=== PATIENT | female | born 1960 | race Caucasian/White ===

== ENCOUNTER 2025-04-07 10:24 | Day surgery (SDC) | payer MEDICARE, SELFPAY ==
[2025-04-07] VITALS (18 sets, daily range): BP systolic 126–145; BP diastolic 61–79; PULSE 88–116; RESP 16–20; TEMP 36.4–37.4; O2SAT 87–100; BMI 31.0
--- OUTSIDE RECORDS SUMMARY | 2025-04-07 10:27 | XMS_ITS | Clinical Summary ---
Author Organization [facility] Address [address] [place] [id number] Care Team Providers Care Creative Services Writer Name Role Phone Nikki Navarroe Primary Care Provider Allergies Active Allergy Reactions Criticality Noted Date Comments Amoxicillin Rash 12/21/2006 Medications CALCIUM CARBONATE/VITAMI N D3 (CALCIUM + D ORAL) Take by mouth once daily. Take 1 tablet by mouth once daily. 1 Active Ventolin HFA 90 mcg/actuation inhalerIndicatio ns:Cough INHALE 1-2 PUFFS BY MOUTH EVERY 4 HOURS IF NEEDED. 1 Each 3 1 Active NITROGLYCERIN 0.2 % IN PETROLATUM OINTMENT, AHC MIXTURE,Indicati ons:Dry skin Use for moisturizing 4 times daily. 106 g 5 3 Active amLODIPine 5 mg tabletIndication s:Essential hypertension Take 1 Tablet (5 mg) by mouth once daily. 100 Tablet 3 5 Active aspirin 81 mg enteric coated tabletIndication s:Dyslipidemia Take 1 Tablet (81 mg) by mouth once daily with a meal. 100 Tablet 3 5 Active atorvastatin 40 mg tabletIndication s:Dyslipidemia Take 1 Tablet (40 mg) by mouth at bedtime. 100 Tablet 3 5 Active lisinopriL 40 mg tabletIndication s:Essential hypertension Take 1 Tablet (40 mg) by mouth once daily. 100 Tablet 3 5 Active hydrocortisone 2.5 % rectal creamIndications :Hemorrhoids, external Apply topically to affected area(s) three times daily. To inflamed hemorrhoid up to 2 weeks. 30 g 3 5 Active metFORMIN 500 mg Extended-Release tabletIndication s:Prediabetes Take 1 Tablet (500 mg) by mouth once daily with evening meal. 100 Tablet 3 5 Active Active Problems Problem Noted Date Diagnosed Date Former smoker 11/22/2023 Prediabetes 11/22/2023 Dyslipidemia 05/14/2017 Overview (05/14/2017): ASCVD 10 year risk 11.9%. Start Lipitor. Hyperplastic colon polyp 05/16/2011 Overview (11/30/2021): Colonoscopy 04/2011 polyps repeat in 10 years Colonoscopy 11/2021 hyperplastic polyp, repeat in 10 years Impaired fasting glucose 04/22/2008 Essential hypertension 03/12/2008 TREMOR, ESSENTIAL 11/04/2004 Resolved Problems Problem Noted Date Diagnosed Date Resolved Date Primary hyperparathyroidism 06/07/2010 05/06/2016 Serum calcium elevated 05/28/201005/03 Closed fracture of unspecifi ed part of humerus 03/12/2008 05/06/2016 Disturbance of skin sensation 05/21/2007 05/06/2016 Tobacco use disorder 05/21/2007 024 HTN (hypertension) 8 Overview (09/08/2009): Updated by system to replace inactive record Immunizations Immunization Administration Dates Next Due COVID-19 VACCINE SPIKEVAX (M ODERNA 50MCG/0.5ML) 12YO+ PFS 11/13/2024 INFLUENZA, IIV3 PF (AGE >= 6 MO) 04/22/2009 Influenza Virus, Unspecified 03/26/2017 Influenza, CCIIV3 (Age >=6 M O) (Egg Free) 04/10/2024 Influenza, IIV3 (Age >=3 years) 03/26/2013,04/27 Influenza, IIV4 03/17/2020,04/04/2018,05/06/2016 Influenza, IIV4 (=>6mos) MDV 03/16/2021, 03/17/2020,04/30/2019,03/26,04/04/2017 Influenza,CCIIV4 PRESERV FREE 05/04/2023 Pneumococcal Conj 20-valent (Prevnar 20) 11/22/2023 Pneumococcal Poly,23-Valent (Pneumovax) 04/27/2012 RSV, Recombinant ADJ Reconst ituted (Arexvy 120MCG/0.5mL) 05/04/2023 Td (Age >=7 Years) 06/02/2004 Tdap 11/22/2023,04/27/2012 Zoster (Shingrix-RZV, recombinant) 08/14/2019, Family History Medical History Relation Name Comments Cancer Father [place] Diabetes Father No Known Problems Mother Diabetes Paternal Grandmother Other Son essential tremo r Cancer-breast No Family History Cancer-ovarian No Family History Relation Name Status Comments Father Mother Paternal Grandmother Son Social History Tobacco Use Types Packs/Day Years Used Date Smoking Tobacco: Former Cigarettes 1 38.7 1 979 - 03/2022 Smokeless Tobacco: Never Tobacco Cessation:Counseling Given: Not Answered Comments:pt declines information- about 3/4 of a pack Alcohol Use Standard Drinks/Week Comments Yes 0 (1 standard drink = 0.6 oz pur e alcohol) rare PHQ-2 Answer Date Recorded PHQ-2 TOTAL SCORE 0 11/13/2024 Social Connections Answer Date Recorded Do you often feel lonely or isolated from those around you? 0 11/13/2024 Financial Resource Strain Answer Date R ecorded Difficulty of Paying Living Expenses 3 11/22/2023 Difficulty of Paying Living Expenses Not on file 11/22/2023 Food Insecurity Answer Date Recorded Do you worry your food will run out before you are able to buy more? 1 11/13/2024 Transportation Needs Answer Date Record ed Does lack of transportation keep you from medica l appointments? 1 11/13/2024 Does lack of transportation keep you from work, meetings or getting things that you need? 1 11/13/2024 Housing Stability Answer Date Recorded What is your housing situation today? 1 11/13/2024 Utilities Answer Date Recorded Do you have trouble paying f or utilities (for example, heat, electricity, water, phone)? 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 Not on file Not on file Not on file Obstetrics History Para Term AB IAB SAB Ectopic Multiple Livin g Live Births 3 3 3 0 0 0 0 0 6 3 Date Outcome GA Total Labor Labor/2nd/3rd Weight Sex Type Anes PTL Solange A1 A5 Name Clin 05/19 Term M Vag Living [facility] 04/02 Term M Vag Living [facility] 11/04 Term M Vag Living Te[facility] Last Filed Vital Signs Vital Sign Reading Time Taken Comments Blood Pressure 126/72 11/13/2024 9:41 AM CDT Pulse 93 11/13/2024 9:41 AM CDT Temperature 36.6 C (97.9 F) 09/13/2022 11:03 AM CDT Respiratory Rate 14 11/13/2024 9:41 AM CDT Oxygen Saturation 96% 11/13/2024 9:41 AM CDT Inhaled Oxygen Concentration - - Weight 86 kg (189 lb 11.2 oz) 11/13/2024 9:41 AM CDT Height 168 cm (5' 6.14) 11/13/2024 9:41 AM CDT Body Mass Index 30.49 11/13/2024 9:41 AM CDT Plan of Treatment Health Maintenance Due Date Last Done Comments HIV for age 15-65 [address] (for lung CA) age 50-80 2009 DEXA/DXA scan for age 65+ 2024 06/10/2010, 09/2009 Influenza Vaccine (#1) 2025 , 05/04/2023, 03/16/2021, Additional history exists Mammogram for age 45-75 11/08/2025 11/09/19 25, 11/03/2023, 09/20/2022, Additional history exists BMI (ht and wt on same day) for age 18+ 11/13/2025 11/13/2024, 11/22/2023, 10/03/2022, Additional history exists Depression screening for age 12+ 11/13/2025 11/13/2024, 11/22/2023, 10/03/2022, Additional history exists Medicare Wellness for age 65+ 11/14/2025 11/13/2024 Pap test for age 21-65 11/14/2027 , 11/13/2024, 09/06/2019, Additional history exists Lipids for age 45-75 11/13/2029 11/13/2024, 11/22/2023, 10/03/2022, Additional history exists Colonoscopy through age 75 11/27/203111/26, 11/26/2021, 11/26/2021, Additional history exists Tetanus booster 11/21/2033 11/22/2023, 07/2011, 06/02/2004 Hepatitis C screening for age 18-79 Completed 05/06/2016 Zoster (shingles) series for age 50+ Completed 08/14/2019, 04/30/2019 RSV vaccine for adults or Completed 05/04/2023 Pneumococcal series for age 50+ Completed 11/22/2023, 04/27/2012 COVID-19 vaccine series Completed 11/14/19, 04/10/2024, 05/04/2023, Additional history exists Hepatitis B series for 19+ Aged Out N o longer eligible based on patient's age to complete this topic Goals Goal Patient Goal Type Associated Problems Recent Progress Patient-Stated? Author BLOOD PRESSURE - MAINTAINS BP less than 140/90 Blood Pressure No Vicky Mays MD Procedures Procedure Name Priority Date/Time Associated Diagnosis Comments LIPID PANEL W REFLEX MEASURED LDL Routine 11/13/2024 10:23 AM CDT Dyslipidemia HPV HIGH RISK Routine 11/13/2024 10:00 AM CDT Screening for cervical cancer XR MAMMO IBAN BILAT SCREEN Routine 11/08/2024 1:10 PM CDT Visit for screening mammogram COLONOSCOPY SCREENING Routine 11/26/2021 8:00 AM CDT Screening for colon cancer ANTI HCV Routine 05/06/2016 9:01 AM ORTHOTICS PROSTHETICS TECHNICIAN Need for hepatitis C screening test XR DXA BONE DENSITY 2 SITES AXIAL Routine 06/10/2010 9:03 AM ORTHOTICS PROSTHETICS TECHNICIAN Primary hyperparathyroidism (HC) from Last 3 Months or Most Recently Relevant to Health Maintenance Results * LIPID PANEL W REFLEX MEASURED LDL (11/13/2024 10:23 AM CDT) CHOLESTEROL, TOTAL 167 <200 mg/dL [facility] HDL CHOLESTEROL 52 > OR = 50 mg/dL [facility] TRIGLYCERIDES 149 <150 mg/dL [facility] LDL-CHOLESTEROL 90 mg/dL (calc) [facility] Comment: Reference range: <100 Desirable range <100 mg/dL for primary prevention; <70 mg/dL for patients with CHD or diabetic patients with > or = 2 CHD risk factors. LDL-C is now calculated using the Kellen calculation, which is a validated novel method providing better accuracy than the Friedewald equation in the estimation of LDL-C. Joey PLUMMER et al. GENEVIEVE. 2013;310(19): 1520-2216 (http://education.[employer]/faq/ZUR473) CHOL/HDLC RATIO 3.2 <5.0 (calc) [facility] NON HDL CHOLESTEROL 115 <130 mg/dL (calc) [facility] Comment: For patients with diabetes plus 1 major ASCVD risk factor, treating to a non-HDL-C goal of <100 mg/dL (LDL-C of <70 mg/dL) is considered a therapeutic option. Blood BLOOD SPECIMEN / Unknown 11/13/2024 10:23 AM CDT 11/13/2024 10:24 AM CDT us Nikki Navarro DO CHEMISTRY Final Resul t [facility] [address] [place] [address], [email or web address] [address] [place] [address] * HPV HIGH RISK (11/13/2024 10:00 AM CDT) TYPE 16 Negative Negative 11/16/2024 7:05 AM CDT [facility] TYPE 18 Negative Negative 11/16/2024 7:05 AM CDT [facility] OTHER HIGH RISK TYPES Negative Negative 11/16/2024 7:05 AM CDT [facility] Other (Cervical) Non-Blood / Unknown 11/13/2024 10:00 AM CDT 11/14/2024 2:07 PM CDT Narrative [facility] - 11/16/2024 7:05 AM CDT HPV types 16, 18, 31, 33, 35, 39, 45, 51, 52, 56, 58, 59, 66 and 68 DNA were undetectable or below the pre-set threshold. Methodology: [facility] 4800 HPV Test us Nikki Navarro DO MICROBIOLOGY Final Resul t [facility] [address] [place] [address], [place] * XR MAMMO IBAN BILAT SCREEN (11/08/2024 1:10 PM CDT) Anatomical Region Laterality Modality BREASTS, Breast Left, Breast Right Bilateral Mammography Impressions 11/08/2024 3:24 PM CDT There is no radiographic evidence for malignancy. Recommend annual mammograms. MAMMOGRAM ASSESSMENT: ACR 1 Negative PATIENTS: You will also receive a letter with your examination results in an easy to read format. If you have questions about your results, please contact your referring provider. Narrative 11/08/2024 3:24 PM CDT For Patients: As a result of the 21st Century Cures Act, medical imaging exams and procedure reports are released immediately into your electronic medical record. You may view this report before your referring provider. If you have questions, please contact your health care provider. XR MAMMO IBAN BILAT SCREEN [[id number]] CLINICAL HISTORY: This is an asymptomatic 64 y.o. patient. INDICATION FOR EXAM: Mammogram Screening. TECHNIQUE: CC and MLO views were obtained. This study was evaluated with the assistance of Computer-Aided Detection. Breast Tomosynthesis was used in interpretation. COMPARISON FILM: Yes 11/03/23 [facility] 09/20/22 [facility] FINDINGS: The breasts are heterogeneously dense, which may obscure small masses. There are no dominant masses, suspicious micro calcifications or areas of architectural distortion. us Nikki Navarro DO MAMMO Final Resul t * COLONOSCOPY (11/26/2021 7:57 AM CDT) 11/26/2021 7:57 AM CDT Narrative Transcriptions Joey Granados MD - 11/26/2021 9:16 AM CDT Patient Name: Merna Dickinson Procedure Date: 11/26/2021 Gender: Female Date of : 1960 Admit Type: Outpatient Procedure: Colonoscopy Proceduralist: Joey Granados MD , Faviola Levi (Nurse) Referring MD: Nikki Navarro Indications/Pre-Op Diagnosis: Screening for colorectal malignant neoplasm, Last colonoscopy: April 2011 Medications: Fentanyl 100 micrograms IV, Midazolam 4 mgIV, The level of sedation administered wasmoderate Procedure Description: The patient had risks, benefits and alternatives explained to andgave informed consent. The patient had a stable cardiopulmonary status and judged an adequate candidate for conscious sedation. The colonoscope was passed through the anus and advanced to thececum, identified by appendiceal orifice and ileocecal valve. Thecolonoscopy was performed without difficulty. The patient tolerated the procedure well. The quality of the bowel preparation was good. The ileocecal valve, appendiceal orifice, and rectum were photographed. Complications: No immediate complications. Estimated Blood Loss & Specimen: Estimated blood loss: none. Specimen collected - Yes and sent to Laboratory Findings: The perianal and digital rectal examinations were normal. A 3 mm polyp was found in the distal rectum. The polyp was sessile.The polyp was removed with a cold biopsy forceps. Resection and retrieval were complete. The exam was otherwise without abnormality on direct and retroflexion views. Impressions/Post-Op Diagnosis: - One 3 mm polyp in the distal rectum, removed with a cold biopsy forceps. Resected and retrieved. - The examination was otherwise normal on direct and retroflexionviews. Recommendation: - Patient has a contact number available for emergencies. The signsand symptoms of potential delayed complications were discussed with the patient. Return to normal activities tomorrow. Written discharge instructions were provided to the patient. - Resume previous diet. - Continue present medications. - Await pathology results. - Repeat colonoscopy is recommended. The colonoscopy date will be determined after pathology results from today's exam become available for review. Moderate Sedation: Moderate (conscious) sedation was administered by the endoscopy nurse and supervised by the endoscopist. The following parameters were monitored: oxygen saturation, heart rate, respiratory rate, blood pressure, adequacy of pulmonary ventilation and reponse to care. Please refer to the patient's medical record flowsheets and nursing notes for moderate sedation details. Total physician intraservice time was 17 minutes. Joey Granados MD 11/26/2021 9:16:43 AM This report has been signed electronically. Note Initiated On: 11/26/2021 7:57 AM Procedure Code(s): --- Professional --- 49950, Colonoscopy, flexible; with biopsy, single or multiple Diagnosis Code(s): --- Professional --- Z12.11, Encounter for screening formalignant neoplasm of colon D12.8, Benign neoplasm of rectum CPT copyright 2020 [employer]. All rights reserved. The codes documented in this report are preliminary and upon pouncer machine reviewmay be revised to meet current compliance requirements. Scope In: 8:54:01 AM Scope Withdrawal Time 0 hours 8 minutes 21 seconds Scope Out: 9:09:02 AM us Joey Granados MD PROCEDURE ORD Final Res ult * ANTI HCV (05/06/2016 9:01 AM ORTHOTICS PROSTHETICS TECHNICIAN) HEPATITIS C ANTIBODY Non-Reacti ve Non-Reacti ve 05/06/2016 4:13 PM ORTHOTICS PROSTHETICS TECHNICIAN [facility] Blood BLOOD SPECIMEN / Unknown Venipuncture / Unknown 05/06/2016 9:01 AM ORTHOTICS PROSTHETICS TECHNICIAN 05/06/2016 9:02 AM ORTHOTICS PROSTHETICS TECHNICIAN Narrative [facility] - 05/06/2016 4:13 PM ORTHOTICS PROSTHETICS TECHNICIAN Antibodies to HCV not detected; does not exclude the possibility of exposure to HCV. us Danielle Damon MD SEND OUTS Final R esult [facility] [address] [place] [address], [place] * XR DEXA BONE DENSITY 2 SITES (06/10/2010 9:03 AM ORTHOTICS PROSTHETICS TECHNICIAN) Anatomical Region Laterality Modality Spine, HIPS, HIPL, HIPR Other Narrative 06/14/2010 12:40 PM ORTHOTICS PROSTHETICS TECHNICIAN Please see scanned document for results of this study. Procedure Note Cindy Vallejo D - 06/14/2010 Please see scanned document for results of this study. us Virginia Horowitz MD DEXA Final Result from Last 3 Months or Most Recently Relevant to Health Maintenance Insurance [employer] MEDICARE ADVANTAGE MR Advance Directives * Full Code (Latest Code Status on File) Date Activated Date Inactivated Comments 08/16/2010 12:01 PM 08/17/2010 2:10 PM * Full Code Date Activated Date Inactivated Comments 08/16/2010 9:24 AM 08/16/2010 12:01 PM Care Teams Creative Services Writer Relationship Specialty [place] [address] [place] [address] PCP - General Family Practice 05/08/17
--- NOTE | 2025-04-07 10:57 | CRLHL7_ITS ---
For Patients: As a result of the Century Cures Act, medical imaging exams and procedure reports are released immediately into your electronic medical record. You may view this report before your referring provider. If you have questions, please contact your health care provider. INDICATION: Right lower quadrant pain. TECHNIQUE: CT abdomen and pelvis acquired with 94 cc of Isovue 370 IV contrast. COMPARISON: None. FINDINGS: Lower chest: Unremarkable. Liver: Unremarkable. Normal in size and attenuation. No suspicious masses. Gallbladder and bile ducts: Unremarkable. No stones or inflammation. No biliary dilatation. Pancreas: Unremarkable. No mass or inflammation. Spleen: Unremarkable. Normal in size. No masses. Adrenal glands: Unremarkable. No nodules. Kidneys: Atrophic left kidney. No hydronephrosis, stone, or suspicious mass. GI tract: Diverticulosis without pericolonic inflammation. No obstruction. Mild mural thickening of several short segments of the distal small bowel, including the terminal ileum within the lower central abdomen with surrounding mesenteric edema. No pneumatosis identified. The appendix is fluid-filled and dilated up to 9 mm. There are mild periappendiceal inflammatory changes (for example ). Vasculature: Normal caliber abdominal aorta with [id number] atherosclerotic calcification. Mesenteric arteries are patent. Lymph nodes: No lymphadenopathy. Peritoneum/Abdominal Wall: Unremarkable. No free air or significant free fluid. Pelvis: Unremarkable. Bones: Unremarkable for age. IMPRESSION: Constellation of findings compatible with either acute uncomplicated appendicitis in the right lower quadrant with associated reactive terminal ileitis/enteritis, or distal small bowel enteritis and terminal ileitis, likely secondary to an infectious or inflammatory process, to include inflammatory bowel disease. Please note that all CT scans at this facility use dose modulation, iterative reconstruction, and/or weight-based dosing when appropriate to reduce radiation dose to as low as reasonably achievable. Dictated by Delroy Lux MD @ 04/07/2025 12:18:05 PM (Electronically Signed)
--- NOTE | 2025-04-07 10:59 | ED.GENADULT ---
HPI - General Adult General Chief complaint: Abdominal Pain Stated complaint: vomiting, diarrhea, sharp pain up R side stomach Time Seen by Provider: 04/07/25 10:38 Source: patient Mode of arrival: ambulatory Limitations: no limitations History of Present Illness HPI narrative: 64-year-old female presenting today with vomiting diarrhea going on for 4 days. Patient states that about a week ago she has developed cold symptoms along with a cough and that has resolved for the most part. She then developed diarrhea and vomiting that started 4 days ago. There is no blood in her stool or vomitus. She has 2-3 episodes of loose stools per day. She has a hard time keeping anything down. She denies fevers but every now and then does have chills. But 2 days ago developed epigastric pain that radiated to the left and the right and then 1 day ago developed right lower quadrant pain. This pain is sharp and shooting in nature, it was much worse on the car ride over here. She denies any urinary symptoms. She is not lightheaded, denies chest pain or shortness of breath. Denies any recent traveling. No sick contacts that she is aware of. Past medical history significant for hypertension and hyperlipidemia. Past surgical history consists of parathyroid surgery. Patient does not use tobacco. Related Data Home Medications ?Medication ?Instructions ?Recorded ?Confirmed amlodipine 5 mg tablet 5 mg PO DAILY 04/07/25 04/07/25 aspirin 81 mg tablet,delayed 81 mg PO DAILY 04/07/25 04/07/25 release atorvastatin 40 mg tablet 40 mg PO QPM 04/07/25 04/07/25 lisinopril 40 mg tablet 40 mg PO DAILY 04/07/25 04/07/25 Allergies Allergy/AdvReac Type Severity Reaction Status Date / Time amoxicillin Allergy Mild swelling Verified 04/07/25 11:57 and hives Review of Systems Status of ROS: Reports: 10 or more systems reviewed and unremarkable except as noted in History and below [facility] Medical History (Updated 04/07/25 @ 14:19 by Norma Rodriguez MD) History of tobacco use ?Z87.891 - Personal history of nicotine dependence (ICD-10) Dyslipidemia ?E78.5 - Hyperlipidemia, unspecified (ICD-10) Prediabetes ?R73.03 - Prediabetes (ICD-10) Hypertension ?I10 - Essential (primary) hypertension (ICD-10) Surgical History (Updated 04/07/25 @ 12:54 by Lupe Wise MD) H/O parathyroidectomy ?Z98.890 - Other specified postprocedural states (ICD-10) ?Z90.89 - Acquired absence of other organs (ICD-10) Social History Smoking Status: Never smoker Do you use any of these nicotine containing products: None Second hand tobacco smoke exposure: No How often do you have a drink containing alcohol: 2-3 times a week AUDIT-C Alcohol total score: 3 Non-prescribed substance use: denies use service: No Exam Narrative: Exam Narrative: Overweight, well-developed patient in no acute distress. Alert and oriented. Answers questions appropriately. Mood and affect are appropriate. Thoughts are goal oriented and rational. No tangential or magical thinking noted. Patient speaks in full sentences without needing to catch their breath. HEENT: Normocephalic atraumatic. Pupils are equally round reactive to light. Extraocular muscles are intact. Conjunctivae are moist without any icterus noted. Moist mucous membranes. Posterior pharynx is normal. Cardiovascular: Tachycardic, regular rhythm. Lungs: Clear to auscultation bilaterally no wheezes rhonchi or rales are appreciated. Patient takes deep breaths without any discomfort. Abdomen: Soft and nondistended with normal bowel sounds. Patient does have mild rebound tenderness. She has pain at McBurney's point and periumbilically. Extremities: Bilateral lower extremities are without edema. Skin: Well perfused without any obvious rashes. Const: Vital Signs, click to edit/add: Vital Signs - 24 hr 04/07/25 10:36 04/07/25 12:30 Temperature 98.4 F Pulse Rate [Pulse Oximeter] 116 H 107 H Respiratory Rate 18 18 Blood Pressure [Ri ght Upper Arm] 136/79 127/72 Pulse Oximetry 95 95 Oxygen Delivery Me thod Room Air Room Air Course Course ED Course: Differential diagnoses includes gastroenteritis, appendicitis, pancreatitis, UTI, colitis. IV is established patient is given normal saline as well as Zofran. Normal lactate. CBC shows an elevated white count at 13.5 with 84.6% neutrophils. Sodium low at 128. CRP quite elevated at 19.8. Remainder of labs are unremarkable. Abdominal CT scan concerning for appendicitis with surrounding inflammation. Discussed case with Dr. Wise who will proceed to the OR for probable acute appendicitis. We did go ahead and proceed with an EKG given the patient's history and does sinus tachycardia with a pulse of 107 with a left bundle branch block. Unfortunately the only other EKG we have to compare to was done in 2011 which shows normal sinus rhythm. We proceeded with a chest x-ray that was unremarkable and a point care troponin which was 0. Of note patient is completely asymptomatic at this time from a cardiac standpoint. This left bundle-branch is likely not new however impossible to say how long she has had it. Vital Signs Vital signs: Initial Vital Signs Temperature 98.4 F 04/07/25 10:36 Temperature Source Temporal Artery Scan 04/07/25 10:36 Pulse Rate 116 H 04/07/25 10:36 Respiratory Rate 18 04/07/25 10:36 Blood Pressure 136/79 04/07/25 10:36 Blood Pressure Mean 98 04/07/25 10:36 Blood Pressure Position Sitting 04/07/25 10:36 Pulse Oximetry 95 04/07/25 10:36 Oxygen Delivery Method Room Air 04/07/25 10:36 Vital Signs Temperature 98.4 F 04/07/25 10:36 Pulse Rate 116 H 04/07/25 10:36 Respiratory Rate 18 04/07/25 10:36 Blood Pressure 136/79 04/07/25 10:36 Pulse Oximetry 95 04/07/25 10:36 Oxygen Delivery Method Room Air 04/07/25 10:36 Temperature 98.4 F 04/07/25 10:36 Pulse Rate 107 H 04/07/25 12:30 Respiratory Rate 18 04/07/25 12:30 Blood Pressure 127/72 04/07/25 12:30 Pulse Oximetry 95 04/07/25 12:30 Oxygen Delivery Method Room Air 04/07/25 12:30 Medications Administered Medications: Discontinued Medications Generic Name Dose Route Start Last Admin Trade Name Freq PRN Reason Stop Dose Admin Sodium Chloride 1,000 mls @ 1,000 mls/hr 04/07/25 11:00 04/07/25 12:32 0.9 % Sodium Chloride 1000 Ml IV 04/07/25 11:59 Infused .Q1H STEVE Infusion Ondansetron HCl 4 mg 04/07/25 10:56 04/07/25 11:22 Ondansetron 2 Mg/Ml Inj IVP 04/07/25 10:57 4 mg ONCE ONE Administration Medical Decision Making MDM Narrative Medical decision making narrative: 64-year-old female with acute appendicitis. Patient will proceed to the OR for further management. Lab Data Lab results reviewed: Yes I reviewed the patient's lab results Labs: Lab Results 04/07/25 04/07/25 04/07/25 Range/Units 11:04 11:15 12:30 WBC 13.52 H (4.50-11.00) K/uL RBC 4.34 (4.00-5.20) m/uL Hgb 13.4 (12.0-16.0) gm/dL Hct 40.3 (33.0-51.0) % MCV 93 (80-100) fL MCH 31 (26-34) pg MCHC 33 (32-36) gm/dL RDW Coeff of Zachary 12.9 (11.5-15.5) % Plt Count 332 (140-440) K/uL Neut % (Auto) 84.6 H (42.0-72.0) % Lymph % (Auto) 5.9 L (20-44) % Hooker % (Auto) 7.7 (0.0-11.0) % Eos % (Auto) 1.2 (0.0-7.0) % Baso % (Auto) 0.4 (0.0-3.0) % Neut # (Auto) 11.40 H (1.7-7.0) K/uL Lymph # (Auto) 0.80 L (0.90-2.90) K/uL Hooker # (Auto) 1.00 H (0.00-0.90) K/UL Eos # (Auto) 0.20 (0.00-0.50) K/uL Baso # (Auto) 0.10 (0.00-0.30) K/uL Abs Immat Gran (auto) 0.00 (0.00-0.30) K/uL Imm/Tot Granulo (auto) 0.2 % Sodium 128 L (135-149) mmol/L Potassium 3.6 (3.6-5.1) mmol/L Chloride 96 (96-114) mmol/L Carbon Dioxide 22 (20-32) mmol/L Anion Gap 10 (7-15) mEq/L BUN 13 (7-30) mg/dL Creatinine 0.7 (0.5-1.5) mg/dL Estimated Creat Clear 52.51 Estimated GFR 96 ml/min Glucose 137 H (60-115) mg/dL Lactate 1.1 (0.5-1.9) mmol/L Calcium 9.1 (8.4-10.6) mg/dL Total Bilirubin 1.3 (0.1-1.5) mg/dL Direct Bilirubin 0.3 (0.0-0.5) mg/dL AST 25 (12-35) U/L ALT 18 (4-35) U/L Alkaline Phosphatase 79 (40-150) U/L C-Reactive Protein 19.8 H (0.5-1.0) mg/dL Total Protein 7.0 (6.0-8.3) g/dL Albumin 3.7 (3.3-5.0) g/dL Lipase 60 (23-300) U/L Urine Color Yellow (Yellow) Urine Appearance Clear (Clear) Urine pH 5.5 (5.0-8.5) Ur Specific Elnora <= 1.005 (1.000-1.030) Urine Protein Negative (Negative) Urine Glucose (UA) Negative (Negative) Urine Ketones Negative (Negative) Urine Blood Trace-intact A (Negative) Urine Nitrite Negative (Negative) Urine Bilirubin Negative (Negative) Urine Urobilinogen 0.2 (0.2-1.0) Ur Leukocyte Esterase Trace A (Negative) Urine RBC 0-2 (0-2) Urine WBC 0-2 (0-5) Ur Squamous Epith Cells Few (None-Few) Amorphous Sediment Few A (None) Urine Bacteria None (None) SARS-CoV-2 (PCR) Negative SARS-CoV-2 (Negative) Influenza Type A (PCR) Negative PCR FLU A (Negative) Influenza Type B (PCR) Negative PCR FLU B (Negative) RSV (PCR) Negative PCR RSV (Negative) POC Creatinine 0.8 (0.6-1.3) mg/dl POC Troponin I (0.01-0.04) ng/ml 04/07/25 Range/Units 13:46 WBC (4.50-11.00) K/uL RBC (4.00-5.20) m/uL Hgb (12.0-16.0) gm/dL Hct (33.0-51.0) % MCV (80-100) fL MCH (26-34) pg MCHC (32-36) gm/dL RDW Coeff of Zachary (11.5-15.5) % Plt Count (140-440) K/uL Neut % (Auto) (42.0-72.0) % Lymph % (Auto) (20-44) % Hooker % (Auto) (0.0-11.0) % Eos % (Auto) (0.0-7.0) % Baso % (Auto) (0.0-3.0) % Neut # (Auto) (1.7-7.0) K/uL Lymph # (Auto) (0.90-2.90) K/uL Hooker # (Auto) (0.00-0.90) K/UL Eos # (Auto) (0.00-0.50) K/uL Baso # (Auto) (0.00-0.30) K/uL Abs Immat Gran (auto) (0.00-0.30) K/uL Imm/Tot Granulo (auto) % Sodium (135-149) mmol/L Potassium (3.6-5.1) mmol/L Chloride (96-114) mmol/L Carbon Dioxide (20-32) mmol/L Anion Gap (7-15) mEq/L BUN (7-30) mg/dL Creatinine (0.5-1.5) mg/dL Estimated Creat Clear Estimated GFR ml/min Glucose (60-115) mg/dL Lactate (0.5-1.9) mmol/L Calcium (8.4-10.6) mg/dL Total Bilirubin (0.1-1.5) mg/dL Direct Bilirubin (0.0-0.5) mg/dL AST (12-35) U/L ALT (4-35) U/L Alkaline Phosphatase (40-150) U/L C-Reactive Protein (0.5-1.0) mg/dL Total Protein (6.0-8.3) g/dL Albumin (3.3-5.0) g/dL Lipase (23-300) U/L Urine Color (Yellow) Urine Appearance (Clear) Urine pH (5.0-8.5) Ur Specific [place] (1.000-1.030) Urine Protein (Negative) Urine Glucose (UA) (Negative) Urine Ketones (Negative) Urine Blood (Negative) Urine Nitrite (Negative) Urine Bilirubin (Negative) Urine Urobilinogen (0.2-1.0) Ur Leukocyte Esterase (Negative) Urine RBC (0-2) Urine WBC (0-5) Ur Squamous Epith Cells (None-Few) Amorphous Sediment (None) Urine Bacteria (None) SARS-CoV-2 (PCR) (Negative) Influenza Type A (PCR) (Negative) Influenza Type B (PCR) (Negative) RSV (PCR) (Negative) POC Creatinine (0.6-1.3) mg/dl POC Troponin I 0.00 L (0.01-0.04) ng/ml Imaging Data CT scan - abdomen: Attestation: I have reviewed the pertinent imaging results. Radiologist's impression: TECHNIQUE: CT abdomen and pelvis acquired with 94 cc of Isovue 370 IV contrast. COMPARISON: None. FINDINGS: Lower chest: Unremarkable. Liver: Unremarkable. Normal in size and attenuation. No suspicious masses. Gallbladder and bile ducts: Unremarkable. No stones or inflammation. No biliary dilatation. Pancreas: Unremarkable. No mass or inflammation. Spleen: Unremarkable. Normal in size. No masses. Adrenal glands: Unremarkable. No nodules. Kidneys: Atrophic left kidney. No hydronephrosis, stone, or suspicious mass. GI tract: Diverticulosis without pericolonic inflammation. No obstruction. Mild mural thickening of several short segments of the distal small bowel, including the terminal ileum within the lower central abdomen with surrounding mesenteric edema. No pneumatosis identified. The appendix is fluid-filled and dilated up to 9 mm. There are mild periappendiceal inflammatory changes (for example ). Vasculature: Normal caliber abdominal aorta with [id number] atherosclerotic calcification. Mesenteric arteries are patent. Lymph nodes: No lymphadenopathy. Peritoneum/Abdominal Wall: Unremarkable. No free air or significant free fluid. Pelvis: Unremarkable. Bones: Unremarkable for age. IMPRESSION: Constellation of findings compatible with either acute uncomplicated appendicitis in the right lower quadrant with associated reactive terminal ileitis/enteritis, or distal small bowel enteritis and terminal ileitis, likely secondary to an infectious or inflammatory process, to include inflammatory bowel disease. Chest x-ray: Attestation: I have reviewed the pertinent imaging results. Radiologist's impression: TECHNIQUE: PA and lateral views of the chest (3 images). FINDINGS: Medical Devices: None. Lung Volumes: Adequate inspiration. No significant atelectasis. Lungs: Clear lungs. Incidental note is made of an azygous fissure, a normal anatomical variant. Pleura and Pleural spaces: No significant pleural effusion. No pneumothorax. Mediastinum: Normal cardiomediastinal silhouette. Bony Thorax and Soft Tissues: No significant incidental findings. IMPRESSION: No findings to explain the clinical history of abdominal pain. Incidental findings described in the body of the report. ECG Data Attestation: I personally reviewed and interpreted this ECG as follows: Discharge Plan Discharge Clinical Impression: Acute appendicitis, Left bundle branch block Patient Disposition: XFER to OR Condition: Stable Instructions: General Anesthesia (DC), NH+C Post-Operative Instructions: Appendectomy Follow Up/Referrals: Provider,Not a Local [Primary Care Provider, Family Practice]
[2025-04-07] MEDS: ONDANSETRON 2 MG/ML inj 4 MG IVP (11:22)
[2025-04-07 11:27] LABS: Creatinine, Point-of-Care* 0.8 mg/dl (0.6-1.3)
[2025-04-07 11:28] LABS: Lactate* 1.1 mmol/L (0.5-1.9)
[2025-04-07 11:30] LABS: Hematocrit* 40.3 % (33.0-51.0); Hemoglobin* 13.4 gm/dL (12.0-16.0); Immature Granulocytes Pct Auto 0.2 %; Lymphocytes Absolute Auto 0.80 K/uL (0.90-2.90); Mean Corpuscular HGB Conc 33 gm/dL (32-36); Mean Corpuscular Hemoglobin 31 pg (26-34); Mean Corpuscular Volume 93 fL (80-100); RDW Coefficient of Variation % 12.9 % (11.5-15.5); Red Blood Count* 4.34 m/uL (4.00-5.20); White Blood Count* 13.52 K/uL (4.50-11.00)
[2025-04-07 11:34] LABS: Immature Granulocytes Abs Auto 0.00 K/uL (0.00-0.30); Slide Review Reflex No
[2025-04-07 11:43] LABS: Albumin* 3.7 g/dL (3.3-5.0); Chloride* 96 mmol/L (96-114)
[2025-04-07 11:44] LABS: Potassium* 3.6 mmol/L (3.6-5.1); Sodium* 128 mmol/L (135-149)
[2025-04-07 11:46] LABS: Blood Urea Nitrogen* 13 mg/dL (7-30); Creatinine* 0.7 mg/dL (0.5-1.5); Est. Creatinine Clearance* 52.51; Estimated Glomerular Filt Rate 96 ml/min
[2025-04-07 11:47] LABS: Alanine Aminotransferase* 18 U/L (4-35); Alkaline Phosphatase* 79 U/L (40-150); Anion Gap 10 mEq/L (7-15); Aspartate Amino Transferase* 25 U/L (12-35); Bilirubin Direct* 0.3 mg/dL (0.0-0.5); Bilirubin Total* 1.3 mg/dL (0.1-1.5); Calcium* 9.1 mg/dL (8.4-10.6); Carbon Dioxide* 22 mmol/L (20-32); Glucose* 137 mg/dL (60-115); Total Protein* 7.0 g/dL (6.0-8.3)
[2025-04-07 12:39] LABS: PCR FLU A Negative PCR FLU A (Negative); PCR FLU B Negative PCR FLU B (Negative); PCR RSV Negative PCR RSV (Negative); SARS PCR* Negative SARS-CoV-2 (Negative)
[2025-04-07 12:43] LABS: Appearance Urine Clear (Clear)
--- NOTE | 2025-04-07 13:19 | CRLHL7_ITS ---
For Patients: As a result of the Century Cures Act, medical imaging exams and procedure reports are released immediately into your electronic medical record. You may view this report before your referring provider. If you have questions, please contact your health care provider. INDICATION: ABDOMEN PAIN. (Sic) No other history given. COMPARISON: No similar prior examinations available for comparison. Comparison is made to an abdominopelvic CT performed earlier the same day (please refer to that report. TECHNIQUE: PA and lateral views of the chest (3 images). FINDINGS: Medical Devices: None. Lung Volumes: Adequate inspiration. No significant atelectasis. Lungs: Clear lungs. Incidental note is made of an azygous fissure, a normal anatomical variant. Pleura and Pleural spaces: No significant pleural effusion. No pneumothorax. Mediastinum: Normal cardiomediastinal silhouette. Bony Thorax and Soft Tissues: No significant incidental findings. IMPRESSION: No findings to explain the clinical history of abdominal pain. Incidental findings described in the body of the report. Please also refer to the same day abdominopelvic CT report. Dictated by Mitesh Pena MD @ 04/07/2025 1:38:13 PM (Electronically Signed)
--- NOTE | 2025-04-07 13:34 | PM.GSHP ---
History of Present Illness History of Present Illness Date Seen: 04/07/25 Chief complaint: vomiting, diarrhea, sharp pain up R side stomach Narrative: Merna Dickinson is a 64 year old female to the emergency department with several days of vomiting, diarrhea and abdominal pain. She states that last or 5 days ago, she developed vomiting and diarrhea as well as pain across her whole abdomen. She states that her symptoms continued over the next few days. She was unable to eat for the then sent multi rice. Today she tried to take her vacations and she vomited again and so she came in to be seen. She states that the pain over these 5 days has slowly moved to her right side. The pain is sharp and is worse with movement. She states it was worse in the car. She has no fevers, no urinary symptoms. No blood in her stool. She has no history of chronic diarrhea or Crohn's. She has never had anything like this before. No prior abdominal surgeries. She has not eaten today. She did have some sips of water on the way in. Approximately 10 days ago she did have an upper respiratory illness. Her had the same symptoms. They had a cough and a runny nose. She denies chest pain or shortness of breath. She did not have any fevers when she had the upper respiratory illness. [facility] Medical History (Updated 04/07/25 @ 14:19 by Norma Rodriguez MD) History of tobacco use ?Z87.891 - Personal history of nicotine dependence (ICD-10) Dyslipidemia ?E78.5 - Hyperlipidemia, unspecified (ICD-10) Prediabetes ?R73.03 - Prediabetes (ICD-10) Hypertension ?I10 - Essential (primary) hypertension (ICD-10) Surgical History (Updated 04/07/25 @ 12:54 by Lupe Wise MD) H/O parathyroidectomy ?Z98.890 - Other specified postprocedural states (ICD-10) ?Z90.89 - Acquired absence of other organs (ICD-10) Social History Smoking Status: Never smoker Do you use any of these nicotine containing products: None Second hand tobacco smoke exposure: No How often do you have a drink containing alcohol: 2-3 times a week AUDIT-C Alcohol total score: 3 Non-prescribed substance use: denies use service: No Meds Home Medications and Allergies Home Medications ?Medication ?Instructions ?Recorded ?Confirmed ?Type amlodipine 5 mg tablet 5 mg PO DAILY 04/07/25 04/07/25 History aspirin 81 mg tablet,delayed 81 mg PO DAILY 04/07/25 04/07/25 History release atorvastatin 40 mg tablet 40 mg PO QPM 04/07/25 04/07/25 History lisinopril 40 mg tablet 40 mg PO DAILY 04/07/25 04/07/25 History Allergies Allergy/AdvReac Type Severity Reaction Status Date / Time amoxicillin Allergy Mild swelling Verified 04/07/25 11:57 and hives Exam Narrative: Exam Narrative: General appearance: Alert, cooperative, and in no distress Eyes: PERRLA, eye lids clear, and sclera white HENT Head: Normocephalic Ears: External ears normal Pulmonary: Clear to auscultation bilaterally Cardiovascular Heart: Mild tachycardia. Extremities: warm and well perfused Gastrointestinal Abdominal: Protuberant. No scars. Patient is tender in the right lower quadrant with rebound. Musculoskeletal: Extremities: Upper: Both upper extremities have normal joint range of motion and intact strength. Lower: Both lower extremities have normal joint range of motion and intact strength. Skin: Normal skin color, texture, and turgor. Neurologic: No focal deficits Psychiatric: Alert, oriented, cooperative, normal affect. Const: Vital Signs, click to edit/add: Vital Signs - 24 hr 04/07/25 10:36 04/07/25 12:30 Temperature 98.4 F Pulse Rate [Pulse Oximeter] 116 H 107 H Respiratory Rate 18 18 Blood Pressure [Ri ght Upper Arm] 136/79 127/72 Pulse Oximetry 95 95 Oxygen Delivery Me thod Room Air Room Air Results Results Labs: White blood cell count is elevated at 13.5. CRP is 19.8. LFTs normal. Electrolytes are normal. UA showed a trace of leukocyte esterase. Small amount of Blood. COVID, influenza and RSV were negative. Chest x-ray: report reviewed and image reviewed EKG: image reviewed (There is a new left bundle branch block. This was compared to the only prior EKG from 2010 which was normal. ) Additional studies: Chest x-ray: IMPRESSION: No findings to explain the clinical history of abdominal pain. Incidental findings described in the body of the report. Dictated by Mitesh Pena MD @ 04/07/2025 1:38:[address] abdomen pelvis: INDICATION: Right lower quadrant pain. TECHNIQUE: CT abdomen and pelvis acquired with 94 cc of Isovue 370 IV contrast. COMPARISON: None. FINDINGS: Lower chest: Unremarkable. Liver: Unremarkable. Normal in size and attenuation. No suspicious masses. Gallbladder and bile ducts: Unremarkable. No stones or inflammation. No biliary dilatation. Pancreas: Unremarkable. No mass or inflammation. Spleen: Unremarkable. Normal in size. No masses. Adrenal glands: Unremarkable. No nodules. Kidneys: Atrophic left kidney. No hydronephrosis, stone, or suspicious mass. GI tract: Diverticulosis without pericolonic inflammation. No obstruction. Mild mural thickening of several short segments of the distal small bowel, including the terminal ileum within the lower central abdomen with surrounding mesenteric edema. No pneumatosis identified. The appendix is fluid-filled and dilated up to 9 mm. There are mild periappendiceal inflammatory changes (for example ). Vasculature: Normal caliber abdominal aorta with [id number] atherosclerotic calcification. Mesenteric arteries are patent. Lymph nodes: No lymphadenopathy. Peritoneum/Abdominal Wall: Unremarkable. No free air or significant free fluid. Pelvis: Unremarkable. Bones: Unremarkable for age. IMPRESSION: Constellation of findings compatible with either acute uncomplicated appendicitis in the right lower quadrant with associated reactive terminal ileitis/enteritis, or distal small bowel enteritis and terminal ileitis, likely secondary to an infectious or inflammatory process, to include inflammatory bowel disease. Dictated by Delroy Lux MD @ 04/07/2025 12:18:05 PM Progress Note:A&P Assessment and plan (1) Appendicitis: Status: Acute (2) Enteritis: Status: Acute (3) Diarrhea: Status: Acute Plan The patient is a 64-year-old female with several days of abdominal pain, nausea and vomiting with CT scan showing inflammation about the appendix and distal small bowel. I discussed these findings with the patient and I think that perhaps the most likely causes appendicitis with secondary bowel inflammation. We discussed that while it does not appear that there is a perforation seen on CT, given the timing of her symptoms it is very possible that she may have perforated appendicitis. It is also possible that she could have inflammation of her small bowel given the diarrhea type symptoms that is causing secondary inflammation of the appendix, however given no prior history of inflammatory bowel disease, I think this is less likely. We discussed observation with antibiotics versus appendectomy and I do think that again given her overall picture it seems most reasonable to proceed with appendectomy. We discussed risks the procedure including injury to other structures, bleeding, postoperative abscess, need for an open operation and hospital stay postoperatively based on intraoperative findings. We also discussed recovery. She is agreeable to proceed. She signed informed consent. EKG done pre-operatively shows a left bundle branch block. Her only prior EKG from 2010 was normal. POC troponin done and is 0.[address] Rodriguez and Dr. Bedoya with anesthesia. Patient describes no other cardiac symptoms, has never had chest pain or pressure with activity or worsening shortness of breath. Will plan to proceed with surgery today.
[2025-04-07 14:07] LABS: Troponin, Point-of-Care* 0.00 ng/ml (0.01-0.04)
[2025-04-07] MEDS: LACTATED RINGERS 1000 ML 1,000 ML 125 ML IV ×3 (14:30→16:51)
[2025-04-07] MEDS: BUPIVACAINE 0.25% 30 ML INJECTION (15:03)
--- NOTE | 2025-04-07 15:55 | P.GSOP_ITS ---
Operative Note Date of procedure: 04/07/25 Pre-op diagnosis: Acute appendicitis Post-op diagnosis: Acute perforated appendicitis. Type of Procedure: Laparoscopic appendectomy Indications: The patient is a 64-year-old female who presented to the emergency room with 5 days of abdominal pain, vomiting and diarrhea. Workup revealed elevated white count and CRP. CT scan showed inflammation of the small bowel and appendix, concerning for enteritis versus appendicitis. Based on the findings and her symptoms, I felt this likely best represented appendicitis and therefore recommended appendectomy. Procedure Description: After discussing the risks and benefits of the procedure, the patient signed informed consent.? The operative site was marked and the patient was brought to the operating room and placed on the operating table in supine position.? Care was taken to pad the patient's pressure points.?? The patient was then intubated by anesthesia.?? The operative site was then prepped and draped in the usual sterile fashion.? A time-out was then performed. Entrance to the abdomen was obtained via a 5 mm optical trocar in the left upper quadrant. The abdomen was insufflated and briefly surveyed for any signs of injury. There were none. A 12 mm port was placed inferior to the umbilicus as well as a 5 mm port in the left lower quadrant. Both were done under direct vision. The patient was then placed in Trendelenburg position with the right side up. The small bowel and omentum was adherent to the abdominal wall in the pelvis secondary to fibrinous adhesion. This was carefully bluntly taken down. There were multiple small bowel adhesions which were acute and fibrinous in na ture from the inflammation in her pelvis. I was able to identify the cecum. I traced this down and found the ileocecal fat pad. The terminal ileum was adherent in the pelvis. Again there was fibrinous exudate on this terminal ileum. Otherwise this appeared normal. Carefully using blunt dissection I was able to break up these adhesions and roll this cephalad, exposing the posterior abdomen. The cecum was adherent to the abdominal wall anterolaterally. These adhesions were thicker and more chronic. It appeared as though the appendiceal base was visible with the appendix either tucked under the cecum or lying behind the peritoneum. I began by taking down the cecal adhesions. This was done sharply using Metzenbaum scissors. I was then able to roll the cecum medially and exposed the inferior aspect. There was a firm mass here and at the end of this was fat. I grasped the fat and lifted this up. It was difficult to discern because of the inflammation in the amount of fat around it, however this appeared to be the appendix encased in fat. I began by carefully incising the periappendiceal fat in order to mobilize the appendix. This was dissected and divided carefully with LigaSure. There was a small area encountered during the dissection that appeared to be a contained perforation. This was suction when it was encountered. There was no significant spillage. As I approached the cecum, was much easier to discern the anatomy. I divided the mesoappendix down to the appendiceal base using LigaSure. Once this was done I obtained a purple load Endo-MARIUSZ stapler and fired this across the base of the appendix. The staple line was examined. There was no bleeding. I then removed the appendix using an Endo-Catch bag. I did, using a scissor on the back table, open the specimen to confirm that it was the appendix and the tip was intact. This was then sent to pathology. I then re-examined the appendiceal bed. The staple line again appeared intact. There was no bleeding. I then ran the small bowel from the ileocecal valve, proximally to ensure no small bowel pathology or Meckel's diverticulum. There did not appear to be any. The small bowel appeared to be secondarily inflamed. I did not identify any creeping fat or Meckel's diverticulum suggesting a different process. The patient was then laid flat. The 12 mm port site fascia was closed with 0 Vicryl using a Ricki- Elen device. The abdomen was then desufflated and the ports were removed. The skin was then closed with absorbable subcuticular suture. Sterile dressings were then applied. Instrument sponge and needle counts were correct at the end of the case. The patient was then woken and transported to the PACU in stable condition. ? The patient tolerated the procedure well. Findings: 1. Peritonitis with fibrinous exudate on the small bowel and omentum. 2. Inflamed appendix with a small focal perforation Anesthesia: GETA Surgeon: Lupe Wise MD Estimated blood loss (mL): 5 Specimen: Appendix Condition: stable Disposition: PACU
--- NOTE | 2025-04-07 15:59 | P.ANES_ITS ---
Anesthesia Charges Start Date/Time Anesthesia Start Date: 04/07/25 Anesthesia Start Time: 14:28 Stop Date/Time Anesthesia Stop Date: 04/07/25 Anesthesia Stop Time: 15:57 Summary Emergency: FRYER OPERATOR Coding CPT Codes CPT Codes: ANESTH SURG LOWER ABDOMEN - 81842 ([id number]) P2 - PATIENT W/MILD SYST DISEASE, QZ - FRYER OPERATOR SVC W/O HEEL BOOM OPERATOR BY Additional Codes: Summary - Emergency: FRYER OPERATOR ([id number])
--- NOTE | 2025-04-07 15:59 | W.ANESCHARGE ---
Anesthesia Charges Start Date/Time Anesthesia Start Date: 04/07/25 Anesthesia Start Time: 14:28 Stop Date/Time Anesthesia Stop Date: 04/07/25 Anesthesia Stop Time: 15:57 Summary Emergency: COMPLEX DIRECTOR Coding CPT Codes CPT Codes: ANESTH SURG LOWER ABDOMEN - 87648 ([id number]) P2 - PATIENT W/MILD SYST DISEASE, QZ - COMPLEX DIRECTOR SVC W/O SIEBEL ADMINISTRATOR BY Additional Codes: Summary - Emergency: COMPLEX DIRECTOR ([id number])
[2025-04-07] MEDS: ONDANSETRON 2 MG/ML inj IVP (16:43)
--- NOTE | 2025-04-07 17:28 | PM.IMCN1 ---
Date of Consult Patient: Galdino Patient Consult date: 04/07/25 Requesting Physician: General Surgery Primary Care Provider: Galdino Preciado Consult Narrative Narrative: Merna Dickinson is a 64 year old female with h/o obesity, HTN, hyperlipidemia, prediabetes, 45 packyear h/o smoking who underwent emergent lap appy for presumed acute appendicitis. She tells me that she and her came down ill at the same time a week ago with cold symptoms, including a cough and some muscle aches. She thought she had COVID. Then about 4 days ago, she developed nausea, vomiting, diarrhea and chills. She denies fever, CP, or SOB. She started having epigastric pain and more vomiting, and was unable to keep anything down. Yesterday her pain localized to the RLQ. She says she feels much better now after surgery and the pain in her RLQ is only there when she coughs now. She is feeling well enough that she wants to go home first thing in the morning. We discussed possible ECHO tomorrow, but she is not sure she wants to stay for it. Review of Systems Status of ROS: Reports: 6 or more systems reviewed and unremarkable except as noted in History and below [facility] Medical History (Updated 04/07/25 @ 18:55 by Fozia Womack MD) Obesity (BMI 30.0-34.9) ?E66.811 - Obesity, class 1 (ICD-10) Tremor, essential (11/04/04) ?G25.0 - Essential tremor (ICD-10) Hyperplastic colon polyp (05/16/11) ?K63.5 - Polyp of colon (ICD-10) History of tobacco use ?Z87.891 - Personal history of nicotine dependence (ICD-10) Dyslipidemia ?E78.5 - Hyperlipidemia, unspecified (ICD-10) Prediabetes ?R73.03 - Prediabetes (ICD-10) Hypertension ?I10 - Essential (primary) hypertension (ICD-10) Surgical History (Updated 04/07/25 @ 18:50 by Fozia Womack MD) S/P laparoscopic appendectomy ?Z90.49 - Acquired absence of other specified parts of digestive tract (ICD-10) H/O parathyroidectomy ?Z98.890 - Other specified postprocedural states (ICD-10) ?Z90.89 - Acquired absence of other organs (ICD-10) Social History Smoking Status: Never smoker Do you use any of these nicotine containing products: None Second hand tobacco smoke exposure: No How often do you have a drink containing alcohol: 2-3 times a week AUDIT-C Alcohol total score: 3 Non-prescribed substance use: denies use service: No Meds Home Medications and Allergies Home Medications ?Medication ?Instructions ?Recorded ?Confirmed ?Type amlodipine 5 mg tablet 5 mg PO DAILY 04/07/25 04/07/25 History aspirin 81 mg tablet,delayed 81 mg PO DAILY 04/07/25 04/07/25 History release atorvastatin 40 mg tablet 40 mg PO QPM 04/07/25 04/07/25 History lisinopril 40 mg tablet 40 mg PO DAILY 04/07/25 04/07/25 History metformin 500 mg tablet,extended 500 mg PO QPM 04/07/25 04/07/25 History release 24 hr Allergies Allergy/AdvReac Type Severity Reaction Status Date / Time amoxicillin Allergy Mild swelling Verified 04/07/25 11:57 and hives Exam Narrative: Exam Narrative: General: No acute distress. Awake alert oriented x3. HEENT: Normocephalic atraumatic, pupils equally round and reactive to light and accommodation. Oropharynx clear. Mucous membranes are slightly dry. No JVD. Cardiovascular: Regular rate and rhythm. No murmurs, gallops, or rubs. Chest: No increased work of breathing. Clear to auscultation bilaterally. No crackles or wheezes. Abdomen: Postsurgical abdomen. Laparoscopic surgical wounds have Steri-Strips and are clean, dry, and intact. Extremities: No edema, no cyanosis or clubbing. Skin: No jaundice, no pallor, no rashes on visible skin. Neuro: Grossly intact. No focal deficits. Const: Vital Signs, click to edit/add: Vital Signs - 24 hr 04/07/25 10:36 04/07/25 12:30 04/07/25 15:55 Temperature 98.4 F 99.4 F Pulse Rate 97 Pulse Rate [Pulse Oximeter] 116 H 107 H Respiratory Rate 18 18 16 Blood Pressure 135/61 Blood Pressure [Ri ght Upper Arm] 136/79 127/72 Pulse Oximetry 95 95 93 Oxygen Delivery Me thod Room Air Room Air Room Air 04/07/25 16:00 04/07/25 16:05 04/07/25 16:10 Temperature Pulse Rate 97 95 94 Pulse Rate [Pulse Oximeter] Respiratory Rate 16 16 16 Blood Pressure 141/68 H 126/69 136/67 Blood Pressure [Ri ght Upper Arm] Pulse Oximetry 94 95 94 Oxygen Delivery Me thod Room Air Room Air Room Air 04/07/25 16:15 04/07/25 16:20 04/07/25 16:29 Temperature 98.2 F 97.6 F Pulse Rate 93 93 94 Pulse Rate [Pulse Oximeter] Respiratory Rate 16 16 16 Blood Pressure 139/70 145/68 H 141/73 H Blood Pressure [Ri ght Upper Arm] Pulse Oximetry 95 93 87 L Oxygen Delivery Me thod Room Air Room Air Room Air 04/07/25 16:44 04/07/25 16:59 04/07/25 17:14 Temperature 97.7 F 97.7 F 98.0 F Pulse Rate 94 95 97 Pulse Rate [Pulse Oximeter] Respiratory Rate 18 17 18 Blood Pressure 133/69 136/67 135/71 Blood Pressure [Ri ght Upper Arm] Pulse Oximetry 92 92 96 Oxygen Delivery Me thod Room Air Room Air Room Air 04/07/25 17:21 Temperature Pulse Rate 100 Pulse Rate [Pulse Oximeter] Respiratory Rate Blood Pressure Blood Pressure [Ri ght Upper Arm] Pulse Oximetry Oxygen Delivery Me thod Labs Labs: Short CBC 04/07/25 Range/Units 11:15 WBC 13.52 H (4.50-11.00) K/uL Hgb 13.4 (12.0-16.0) gm/dL Hct 40.3 (33.0-51.0) % Plt Count 332 (140-440) K/uL BMP 04/07/25 11:15 Sodium 128 L Potassium 3.6 Chloride 96 Carbon Dioxide 22 BUN 13 Creatinine 0.7 Glucose 137 H Calcium 9.1 Liver Function 04/07/25 Range/Units 11:15 Total Bilirubin 1.3 (0.1-1.5) mg/dL Direct Bilirubin 0.3 (0.0-0.5) mg/dL AST 25 (12-35) U/L ALT 18 (4-35) U/L Alkaline Phosphatase 79 (40-150) U/L Albumin 3.7 (3.3-5.0) g/dL Urine 04/07/25 Range/Units 12:30 Urine Color Yellow (Yellow) Urine Appearance Clear (Clear) Urine pH 5.5 (5.0-8.5) Ur Specific [place] <= 1.005 (1.000-1.030) Urine Protein Negative (Negative) Urine Glucose (UA) Negative (Negative) 04/07/2025 EKG: Sinus tachycardia, 107 beats per minute, left bundle-branch block. Left bundle branch block is a new finding her most recent EKG that I could find which was from 08/06/2010 done in the [facility] system which showed a normal sinus rhythm, 84 beats per minute, normal EKG. Ordering Physician: Norma Rodriguez M.D. Date of Service: 04/07/25 Procedure(s): XR chest 2V Accession Number(s): [id number] cc: Norma Rodriguez M.D.; Provider,Not a Local~ For Patients: As a result of the Cures Act, medical imaging exams and procedure reports are released immediately into your electronic medical record. You may view this report before your referring provider. If you have questions, please contact your health care provider. INDICATION: ABDOMEN PAIN. (Sic) No other history given. COMPARISON: No similar prior examinations available for comparison. Comparison is made to an abdominopelvic CT performed earlier the same day (please refer to that report. TECHNIQUE: PA and lateral views of the chest (3 images). FINDINGS: Medical Devices: None. Lung Volumes: Adequate inspiration. No significant atelectasis. Lungs: Clear lungs. Incidental note is made of an azygous fissure, a normal anatomical variant. Pleura and Pleural spaces: No significant pleural effusion. No pneumothorax. Mediastinum: Normal cardiomediastinal silhouette. Bony Thorax and Soft Tissues: No significant incidental findings. IMPRESSION: No findings to explain the clinical history of abdominal pain. Incidental findings described in the body of the report. Please also refer to the same day abdominopelvic CT report. Dictated by Mitesh Pena MD @ 04/07/2025 1:38:13 PM (Electronically Signed) Ordering Physician: Norma Rodriguez M.D. Date of Service: 04/07/25 Procedure(s): CT abdomen pelvis w con Accession Number(s): [id number] cc: Norma Rodriguez M.D.~ For Patients: As a result of the 21st Century Cures Act, medical imaging exams and procedure reports are released immediately into your electronic medical record. You may view this report before your referring provider. If you have questions, please contact your health care provider. INDICATION: Right lower quadrant pain. TECHNIQUE: CT abdomen and pelvis acquired with 94 cc of Isovue 370 IV contrast. COMPARISON: None. FINDINGS: Lower chest: Unremarkable. Liver: Unremarkable. Normal in size and attenuation. No suspicious masses. Gallbladder and bile ducts: Unremarkable. No stones or inflammation. No biliary dilatation. Pancreas: Unremarkable. No mass or inflammation. Spleen: Unremarkable. Normal in size. No masses. Adrenal glands: Unremarkable. No nodules. Kidneys: Atrophic left kidney. No hydronephrosis, stone, or suspicious mass. GI tract: Diverticulosis without pericolonic inflammation. No obstruction. Mild mural thickening of several short segments of the distal small bowel, including the terminal ileum within the lower central abdomen with surrounding mesenteric edema. No pneumatosis identified. The appendix is fluid-filled and dilated up to 9 mm. There are mild periappendiceal inflammatory changes (for example ). Vasculature: Normal caliber abdominal aorta with [id number] atherosclerotic calcification. Mesenteric arteries are patent. Lymph nodes: No lymphadenopathy. Peritoneum/Abdominal Wall: Unremarkable. No free air or significant free fluid. Pelvis: Unremarkable. Bones: Unremarkable for age. IMPRESSION: Constellation of findings compatible with either acute uncomplicated appendicitis in the right lower quadrant with associated reactive terminal ileitis/enteritis, or distal small bowel enteritis and terminal ileitis, likely secondary to an infectious or inflammatory process, to include inflammatory bowel disease. Please note that all CT scans at this facility use dose modulation, iterative reconstruction, and/or weight-based dosing when appropriate to reduce radiation dose to as low as reasonably achievable. Dictated by Delroy Lux MD @ 04/07/2025 12:18:05 PM (Electronically Signed) Assessment and Plan Assessment and plan (1) Left bundle branch block: Problem comment: - New finding on EKG today. Most recent EKG prior to this is from 2010 (in the [facility] records), which showed NSR, normal EKG. - Asymptomatic, no CP, SOB, palpitations, initial troponin reassuring - Has risk factors for CAD (HTN, smoking history, hyperlipidemia, prediabetes, obesity) - Has had a recent URI illness; possibility of LBBB from myocarditis should be considered - Recommendations: Cardiac telemetry overnight. Recheck trop I now (this has already resulted and remains reassuring at <0.01). ECHO ordered. I discussed with her the possibility of HF, CAD, myocarditis, valve disease, etc. I prefer that she get this prior to discharge, but if patient desires discharge prior to ECHO being done, she should f/u with PCP this week to discuss outpatient ECHO and if further w/u is needed. Status: Acute (2) S/P laparoscopic appendectomy: Problem comment: 04/07/2025 Frandy for acute appendicitis - routine post op cares - Ertapenem as per orders from Dr. Wise Status: Acute (3) Acute appendicitis: Problem comment: as above Status: Acute (4) History of tobacco use: Problem comment: - 45 year h/o smoking - Denies h/o COPD or emphysema - Patient states she had normal PFTs during early COVID, but I am unable to find this in her [facility] record. Still, no documented h/o COPD. - Monitor on continuous pulse ox. If excessively sleepy, difficult to arouse, consider hypercapnia and check VBG. Status: Chronic (5) Hypertension: Problem comment: - continue home amlodipine and lisinopril Status: Chronic (6) Prediabetes: Problem comment: - metformin on hold while patient is on clears only at this time. Since this is prediabetes, I do not think she needs Accuchecks and ISS. Will monitor with am BG on BMP. Status: Chronic (7) Dyslipidemia: Problem comment: - Continue home atorvastatin Status: Chronic (8) Obesity (BMI 30.0-34.9): Problem comment: - no known h/o FORTUNATO. She is desatting some post op while asleep. Recommend outpatient FORTUNATO screen through PCP Status: Chronic
[2025-04-07] MEDS: HYDROCODONE-ACETAMIN 5-325 MG 1 TAB PO (17:32)
--- NOTE | 2025-04-07 19:03 | PC.NURSE ---
End of shift report [id number]: Alert and oriented x 4. Pain well managed with current regimen. Laparoscopic incisions clean, dry and intact. Bowel sounds active x 4 quadrants, nausea reported on admission, prn zofran administered and effective. Diet advanced to regular and tolerating well.
[2025-04-08 02:40] VITALS: PULSE 92
[2025-04-08 02:53] VITALS: BP 135/76; PULSE 89; RESP 19; TEMP 36.8; O2SAT 97
[2025-04-08] MEDS: HYDROCODONE-ACETAMIN 5-325 MG 1 TAB PO ×2 (03:02→08:28)
[2025-04-08 06:39] LABS: Hematocrit* 34.3 % (33.0-51.0); Hemoglobin* 11.5 gm/dL (12.0-16.0); Immature Granulocytes Pct Auto 0.1 %; Lymphocytes Absolute Auto 0.80 K/uL (0.90-2.90); Mean Corpuscular HGB Conc 34 gm/dL (32-36); Mean Corpuscular Hemoglobin 32 pg (26-34); Mean Corpuscular Volume 94 fL (80-100); RDW Coefficient of Variation % 13.0 % (11.5-15.5); Red Blood Count* 3.65 m/uL (4.00-5.20); White Blood Count* 11.49 K/uL (4.50-11.00)
[2025-04-08 06:40] LABS: Immature Granulocytes Abs Auto 0.00 K/uL (0.00-0.30); Slide Review Reflex No
[2025-04-08 06:53] LABS: Chloride* 99 mmol/L (96-114); Sodium* 129 mmol/L (135-149)
[2025-04-08 06:54] LABS: Potassium* 4.0 mmol/L (3.6-5.1)
[2025-04-08 06:57] LABS: Anion Gap 4 mEq/L (7-15); Blood Urea Nitrogen* 7 mg/dL (7-30); Calcium* 8.9 mg/dL (8.4-10.6); Carbon Dioxide* 26 mmol/L (20-32); Creatinine* 0.6 mg/dL (0.5-1.5); Est. Creatinine Clearance* 52.51; Estimated Glomerular Filt Rate 100 ml/min; Glucose* 179 mg/dL (60-115)
[2025-04-08 07:00] VITALS: BP 139/69; PULSE 89; PULSE 90; RESP 20; TEMP 36.4; O2SAT 93
--- NOTE | 2025-04-08 07:41 | PC.NURSE ---
Shift note ([id number]): Patient pleasant, alert and oriented. Ambulated independently in room.?Tolerating regular diet. O2 sats 95-100% on RA. Given PRN Jackson for pain rated 7/10 with coughing. Lap sites C,D & I. ?
--- NOTE | 2025-04-08 08:05 | P.DS_ITS ---
DS: Providers Provider Date Seen: 04/08/25 Date of admission: 04/07/2025 Primary care physician: Not a Local Provider Admitting Clinician: Lupe Wise MD, FACS Consults: 04/07/25 16:35 Consult to Physician [CONS] Routine Comment: Consulting Provider: Fozia Womack Has provider been notified: Yes Attending Physician on discharge: Lupe Wise MD DS: Diagnosis Discharge Diagnosis (1) History of tobacco use: Status: Chronic Problem details: - 44 year h/o smoking - Denies h/o COPD or emphysema - Patient states she had normal PFTs during early COVID, but I am unable to find this in her [facility] record. Still, no documented h/o COPD. - Monitor on continuous pulse ox. If excessively sleepy, difficult to arouse, consider hypercapnia and check VBG. (2) S/P laparoscopic appendectomy: Status: Acute Problem details: 04/07/2025 [place] for acute appendicitis - routine post op cares - Ertapenem as per orders from Dr. Wise (3) Left bundle branch block: Status: Acute Problem details: - New finding on EKG today. Most recent EKG prior to this is from 2010 (in the [facility] records), which showed NSR, normal EKG. - Asymptomatic, no CP, SOB, palpitations, initial troponin reassuring - Has risk factors for CAD (HTN, smoking history, hyperlipidemia, prediabetes, obesity) - Has had a recent URI illness; possibility of LBBB from myocarditis should be considered - Recommendations: Cardiac telemetry overnight. Recheck trop I now (this has already resulted and remains reassuring at <0.01). ECHO ordered. I discussed with her the possibility of HF, CAD, myocarditis, valve disease, etc. I prefer that she get this prior to discharge, but if patient desires discharge prior to ECHO being done, she should f/u with PCP this week to discuss outpatient ECHO and if further w/u is needed. (4) Obesity (BMI 30.0-34.9): Status: Chronic Problem details: - no known h/o OFRTUNATO. She is desatting some post op while asleep. Recommend outpatient FORTUNATO screen through PCP (5) Hyponatremia: Status: Acute DS: Summary Hospital Course Hospital Course: The patient is a 64-year-old female who presented to the emergency room with several days of abdominal pain. Workup revealed elevated white blood cell count, CRP and a CT scan showing inflammation in the abdomen including the appendix and small bowel. Her clinical picture appeared most consistent with appendicitis and therefore appendectomy was recommended. She went to the operating room where she was found to have appendicitis with a micro perforation and underwent appendectomy. Of note, her preoperative EKG did show a left bundle branch block which was new from her EKG in 2010. She had normal troponin times to. Discussion was had as to whether not an echo was needed, however ultimately since she has been asymptomatic this was deemed unnecessary. On postop day 1 she had significant improvement in her pain, and improvement in her white blood cell count. She was deemed safe for discharge home. Recommendations are for her to follow-up with her primary care provider within the next week. Time Spent with Patient Time attestation: Total time spent providing and/or coordinating discharge services: Exam Narrative: Exam Narrative: General: No acute distress CV: Regular rate and rhythm Respiratory: Clear to auscultation bilaterally Abdomen: Protuberant. Incisions are clean and dry. No erythema. Const: Vital Signs, click to edit/add: Vital Signs - 24 hr 04/07/25 10:36 04/07/25 12:30 04/07/25 15:55 Temperature 98.4 F 99.4 F Pulse Rate 97 Pulse Rate [Pulse Oximeter] 116 H 107 H Respiratory Rate 18 18 16 Blood Pressure 135/61 Blood Pressure [Le ft Arm] Blood Pressure [Ri ght Upper Arm] 136/79 127/72 Pulse Oximetry 95 95 93 Oxygen Delivery Me thod Room Air Room Air Room Air 04/07/25 16:00 04/07/25 16:05 04/07/25 16:10 Temperature Pulse Rate 97 95 94 Pulse Rate [Pulse Oximeter] Respiratory Rate 16 16 16 Blood Pressure 141/68 H 126/69 136/67 Blood Pressure [Le ft Arm] Blood Pressure [Ri ght Upper Arm] Pulse Oximetry 94 95 94 Oxygen Delivery Me thod Room Air Room Air Room Air 04/07/25 16:15 04/07/25 16:20 04/07/25 16:29 Temperature 98.2 F 97.6 F Pulse Rate 93 93 94 Pulse Rate [Pulse Oximeter] Respiratory Rate 16 16 16 Blood Pressure 139/70 145/68 H 141/73 H Blood Pressure [Le ft Arm] Blood Pressure [Ri ght Upper Arm] Pulse Oximetry 95 93 87 L Oxygen Delivery Me thod Room Air Room Air Room Air 04/07/25 16:44 04/07/25 16:59 04/07/25 17:14 Temperature 97.7 F 97.7 F 98.0 F Pulse Rate 94 95 97 Pulse Rate [Pulse Oximeter] Respiratory Rate 18 17 18 Blood Pressure 133/69 136/67 135/71 Blood Pressure [Le ft Arm] Blood Pressure [Ri ght Upper Arm] Pulse Oximetry 92 92 96 Oxygen Delivery Me thod Room Air Room Air Room Air 04/07/25 17:21 04/07/25 17:44 04/07/25 18:14 Temperature 98.1 F 98.1 F Pulse Rate 100 100 100 Pulse Rate [Pulse Oximeter] Respiratory Rate 18 18 Blood Pressure 137/70 137/70 Blood Pressure [Le ft Arm] Blood Pressure [Ri ght Upper Arm] Pulse Oximetry 92 92 Oxygen Delivery Me thod Room Air Room Air 04/07/25 20:26 04/07/25 21:35 04/07/25 23:20 Temperature 97.5 F L 98.1 F 98.1 F Pulse Rate 91 90 88 Pulse Rate [Pulse Oximeter] Respiratory Rate 17 17 19 Blood Pressure 128/68 128/70 137/69 Blood Pressure [Le ft Arm] Blood Pressure [Ri ght Upper Arm] Pulse Oximetry 93 95 100 Oxygen Delivery Me thod Room Air Room Air Room Air 04/07/25 23:20 04/07/25 23:20 04/08/25 02:40 Temperature 98.1 F Pulse Rate 92 Pulse Rate [Pulse Oximeter] 88 Respiratory Rate 19 20 Blood Pressure Blood Pressure [Le ft Arm] 137/69 Blood Pressure [Ri ght Upper Arm] Pulse Oximetry 100 100 Oxygen Delivery Me thod Room Air Room Air 04/08/25 02:53 04/08/25 07:00 Temperature 98.2 F Pulse Rate 89 89 Pulse Rate [Pulse Oximeter] Respiratory Rate 19 Blood Pressure 135/76 Blood Pressure [Le ft Arm] Blood Pressure [Ri ght Upper Arm] Pulse Oximetry 97 Oxygen Delivery Me thod Room Air DS: Data Data Completed and Pending Labs on day of discharge: Labs from last 24 hours 04/08/25 04/07/25 04/07/25 06:17 17:38 13:46 WBC 11.49 H RBC 3.65 L Hgb 11.5 L Hct 34.3 MCV 94 MCH 32 MCHC 34 RDW Coeff of Zachary 13.0 Plt Count 331 Neut % (Auto) 87.2 H Lymph % (Auto) 7.0 L [place] % (Auto) 5.5 Eos % (Auto) 0.0 Baso % (Auto) 0.2 Neut # (Auto) 10.00 H Lymph # (Auto) 0.80 L [place] # (Auto) 0.60 Eos # (Auto) 0.00 Baso # (Auto) 0.00 Abs Immat Gran (auto) 0.00 Imm/Tot Granulo (auto) 0.1 Sodium 129 L Potassium 4.0 Chloride 99 Carbon Dioxide 26 Anion Gap 4 L BUN 7 Creatinine 0.6 Estimated Creat Clear 52.51 Estimated GFR 100 Glucose 179 H Lactate Calcium 8.9 Total Bilirubin Direct Bilirubin AST ALT Alkaline Phosphatase Troponin I < 0.01 C-Reactive Protein Total Protein Albumin Lipase Urine Color Urine Appearance Urine pH Ur Specific [place] Urine Protein Urine Glucose (UA) Urine Ketones Urine Blood Urine Nitrite Urine Bilirubin Urine Urobilinogen Ur Leukocyte Esterase Urine RBC Urine WBC Ur Squamous Epith Cells Amorphous Sediment Urine Bacteria SARS-CoV-2 (PCR) Influenza Type A (PCR) Influenza Type B (PCR) RSV (PCR) POC Creatinine POC Troponin I 0.00 L 04/07/25 04/07/25 04/07/25 12:30 11:15 11:04 WBC 13.52 H RBC 4.34 Hgb 13.4 Hct 40.3 MCV 93 MCH 31 MCHC 33 RDW Coeff of [place] 12.9 Plt Count 332 Neut % (Auto) 84.6 H Lymph % (Auto) 5.9 L [place] % (Auto) 7.7 Eos % (Auto) 1.2 Baso % (Auto) 0.4 Neut # (Auto) 11.40 H Lymph # (Auto) 0.80 L [place] # (Auto) 1.00 H Eos # (Auto) 0.20 Baso # (Auto) 0.10 Abs Immat Gran (auto) 0.00 Imm/Tot Granulo (auto) 0.2 Sodium 128 L Potassium 3.6 Chloride 96 Carbon Dioxide 22 Anion Gap 10 BUN 13 Creatinine 0.7 Estimated Creat Clear 52.51 Estimated GFR 96 Glucose 137 H Lactate 1.1 Calcium 9.1 Total Bilirubin 1.3 Direct Bilirubin 0.3 AST 25 ALT 18 Alkaline Phosphatase 79 Troponin I C-Reactive Protein 19.8 H Total Protein 7.0 Albumin 3.7 Lipase 60 Urine Color Yellow Urine Appearance Clear Urine pH 5.5 Ur Specific [place] <= 1.005 Urine Protein Negative Urine Glucose (UA) Negative Urine Ketones Negative Urine Blood Trace-intact A Urine Nitrite Negative Urine Bilirubin Negative Urine Urobilinogen 0.2 Ur Leukocyte Esterase Trace A Urine RBC 0-2 Urine WBC 0-2 Ur Squamous Epith Cells Few Amorphous Sediment Few A Urine Bacteria None SARS-CoV-2 (PCR) Negative SARS-CoV-2 Influenza Type A (PCR) Negative PCR FLU A Influenza Type B (PCR) Negative PCR FLU B RSV (PCR) Negative PCR RSV POC Creatinine 0.8 POC Troponin I Preliminary micro results at discharge 04/07/25 12:30 Urine Culture - Preliminary Urine,Clean Catch < 10,000 COL/ML MIXED GRAM POSITIVE OLIVIER ISOLATED NO FURTHER WORKUP Discharge Plan Discharge Disposition: Home w/ Parent or Adult Discharging Surgeon: Lupe Wise Follow-Up Appointment: 2 weeks, [place] Prescriptions: New metronidazole 500 mg tablet 500 mg PO BID Qty: 10 0RF metronidazole 500 mg tablet 500 mg PO BID Qty: 10 0RF hydrocodone-acetaminophen 5-325 mg tablet 1 - 2 tab PO Q6H PRN (Reason: Pain) Qty: 15 0RF Rx Instructions: 1 - 2 tab orally as needed ciprofloxacin HCl [Cipro] 500 mg tablet 500 mg PO BID Qty: 10 0RF Continued atorvastatin 40 mg tablet 40 mg PO QPM amlodipine 5 mg tablet 5 mg PO DAILY aspirin 81 mg tablet,delayed release (DR/EC) 81 mg PO DAILY lisinopril 40 mg tablet 40 mg PO DAILY metformin 500 mg tablet extended release 24 hr 500 mg PO QPM Activity Level: Activity as Tolerated and No strenuous activity Activity Detail: No lifting more than 20 pounds for 2 weeks Discharge Diet: Regular Diet Detail: Your sodium was noted to be low while you were in the hospital. You should drink 1800ml of fluid and no more for the next 48 hours. Instead of clear water, you should replace this with an electrolyte-containing fluids such as Gatorade. Patient Instructions: General Anesthesia (DC), NH+C Post-Operative Instructions: Appendectomy Additional Instructions: Wound care: Your sutures are under the skin and will dissolve over time. Leave steri strips (white bandages) over incisions until they fall off (or remove after 7 days). OK to shower tomorrow but avoid bathing, soaking or swimming for 2 weeks. Pat the incisions dry. No need to wash or scrub the area. Apply ice to the area as needed for swelling. It is also OK to use a heating pad if this provides more comfort to you. Pain control: You were prescribed a pain medication. This medication contains acetaminophen (Tylenol). If you are taking your prescribed pain pills 4 times daily, do not take additional acetaminophen. As your pain improves, you can try taking acetaminophen instead of the prescribed pain pill. It is ok to take Ibuprofen or Naproxen (per directions on packaging). This medication helps with inflammation and swelling. Take an dysh-izn-pvivrvd stool softener while you are taking prescribed pain medications to help alleviate constipation. I recommend Senna and/or Colace. Take as directed on package. If you have not had a bowel movement in 3 days, try taking Miralax as directed on the package. All of these are available over the counter. Follow-up Follow up with Dr. Wise in 2-3 weeks Follow-up with your primary care doctor within the next week to discuss your EKG finding and whether not further workup is needed and to recheck your sodium Please call if you are experiencing severe pain, nausea, vomiting, difficulty urinating, fever or have not had bowel movement in 4 days after surgery. Follow-up: Lupe Wise MD [Staff Physician, General Surgery] Provider,Not a Local [Primary Care Provider, Family Practice] Discharge Orders: Discharge Order (Routine); Ordered 04/08/25 Ordered By: Luep Wise
[2025-04-08] MEDS: AMLODIPINE 5 MG TABLET PO (08:28)
[2025-04-08] MEDS: ATORVASTATIN CALCIUM 40 MG TABLET PO (08:28)
--- NOTE | 2025-04-08 10:43 | PC.NURSE ---
Discharge - Pt alert, oriented, cooperative. Up independently in room and tolerating RA and regular diet. Lap sites x 3 CDI, ice pack in place. Pt reported pain in abdomen as 6/10 when moving and stated pain was significantly less noticeable at rest. Given medication per MAR. IV removed with catheter intact, d/c education provided to pt and spouse with both verbalizing understanding. Pt d/c to home with spouse via wheelchair at approximately 1035.
== END 2025-04-08 10:35 | disposition home or self-care (01) ==
LOC: ED 14:19 → OR 14:27 → MEDSURG 16:49
PROVIDERS: Family Medicine; Emergency Provider Family Medicine; Visit Provider Surgery
PROC: 0DTJ4ZZ Resection of Appendix, Percutaneous Endoscopic Approach (ICD-10-PCS; CPT 44970; principal; 2025-04-07 14:00)
DX: K35.32 Acute appendicitis with perforation, localized peritonitis, and gangrene, without abscess (principal); R73.03 Prediabetes; E87.1 Hypo-osmolality and hyponatremia; E66.811 Obesity, class 1; Z68.31 Body mass index [BMI] 31.0-31.9, adult; I44.7 Left bundle-branch block, unspecified; I10 Essential (primary) hypertension; E78.5 Hyperlipidemia, unspecified; Z87.891 Personal history of nicotine dependence
CPT/HCPCS: 44970; 00840; 36415; 71046; 74177; 80048; 80076; 81001; 82565; 83605; 83690; 84484; 85025; 86140; 87086; 87631; 88304; 93005; 99140; 99285; A9270; J0330; J0665; J1100; J1171; J1335; J2405; J2543; J2704; J3010; J3490; J7030; J7120; Q9967